=== PATIENT | male | born 1960 | race African-American/Black ===

== ENCOUNTER 2020-12-14 00:53 | Emergency (ER) | payer SELFPAY ==
[~2020-12-14] VITALS: Ht 177.8 cm; Wt 111.0 kg
[2020-12-14] MEDS ORDERED: NALO4SPR BOTHNSTRLS (01:28)
[2020-12-14 02:24] VITALS: BP 142/85
== END 2020-12-14 02:55 | disposition home or self-care (01) ==
LOC: ER 00:53
DX: F19.10 Other psychoactive substance abuse, uncomplicated (principal); I49.8 Other specified cardiac arrhythmias
CPT/HCPCS: 82962; 93005; 99283